=== PATIENT | male | born 1955 | race Caucasian/White ===

== ENCOUNTER 2016-12-05 16:39 | Outpatient (CLI) | payer OTHER | END 2016-12-05 16:40 | disposition critical access hospital (66) | LOC: EMS 16:39 | PROVIDERS: ATTEND Surgery | DX: R41.82 Altered mental status, unspecified (principal); R51 Headache | CPT/HCPCS: A0425; A0427 ==

== ENCOUNTER 2016-12-05 17:01 | Observation (INO) | payer OTHER ==
--- NOTE | 2016-12-05 17:13 | ED Physician Documentation ---
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 He was then working at desk with his upstairs. He went up to her and said that he did not feel right, was not sure what he was working on. She asked about recent events of the day, and he could not recall any events of the day, nor from the past few days, and even some events from couple weeks ago (did not remember that his brother had couple weeks ago). He had some headache. No focal weaknesses noted. He was able to talk coherently. No noted ataxia.), Today Timing - duration: Hours (2 1/2 - 3 hours.) Timing - details: Abrupt onset, Still present Severity of deficit: Moderate Weakness: No: Face, Arm, Hand, Leg, Foot, Right, Left, Other Numbness: No: Face, Arm, Hand, Leg, Foot, Right, Left, Other Associated symptoms: Headache. No: Nausea / vomiting, Seizure Contributing factors: negative: Anticoagulated, Vascular dz, Atrial fibrillation Baseline status: positive: A&OX3, ambulatory, indep Similar symptoms before: Has not had sx before Recently seen: Not recently seen Review of Systems Constitutional: denies: Fever, Chills Nose: denies: Rhinorrhea / runny nose, Congestion Throat: denies: Sore throat Cardiac: denies: Chest pain / pressure Respiratory: denies: Dyspnea, Cough GI: denies: Abdominal Pain, Nausea, Vomiting, Diarrhea Skin: denies: Rash, Lesions Neurologic: reports: Headache. denies: Focal weakness, Numbness, Syncope, Head injury Endocrine: denies: Weight loss Immunocompromised: denies: Immunocompromised PD PAST MEDICAL HISTORY - Past Medical History Cardiovascular: Hypertension, Coronary artery disease (with stent placed about 2001 without problems since. ) Respiratory: None Neuro: None Endocrine/Autoimmune: None - Present Medications Home Medications: Ambulatory Orders Medication Instructions Recorded Confirmed Atorvastatin [Lipitor] 10 mg PO DAILY 12/05/16 12/05/16 Atorvastatin [Lipitor] 10 mg PO DAILY 12/05/16 12/05/16 Isosorbide Mononitrate 10 mg PO DAILY 12/05/16 12/05/16 Metoprolol Tartrate 25 mg PO DAILY 12/05/16 12/05/16 No Known Home Medications [No 12/05/16 12/05/16 Known Home Medications] - Allergies Allergies/Adverse Reactions: Allergies Allergy/AdvReac Type Severity Reaction Status Date / Time No Known Drug Allergies Allergy Verified 12/05/16 17:10 - Living Situation Living Situation: reports: With spouse/s.o. Living Arrangement: reports: At home - Social History Does the pt smoke?: No Does the pt drink ETOH?: No Does the pt have substance abuse?: No - Family History Family history: reports: Non contributory PD ED PE NORMAL - Vitals Vital signs reviewed: Yes - General General: Alert and oriented X 3, No acute distress, Well developed/nourished, Other (unable to remember events of the day or recent few days. Does not remember events from even coming here on ambulance. No focal deficits one xam. Able to talk coherently. jail memory is good. 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, No motor deficit, No sensory deficit, Normal speech, Other (no short term memory) NIHSS - Level of Consciousness Level of consciousness: (0) Alert, Keenly responsive LOC Questions: (0) Answers both Q's correct LOC Commands: (0) Performs both correctly - Gaze Best Gaze: (0) Normal - Visual Visual: (0) No loss - Facial Palsy Facial Palsy: (0) Normal, symmetrical movement - Motor Arms (both separate) Motor Arm (right): (0) No drift Motor Arm (left): (0) No drift - Motor Legs (both separate) Motor Leg (right): (0) No drift Motor Leg (left): (0) No drift - Limb Ataxia Limb Ataxia: (0) Absent - Sensory Sensory: (0) Normal - Best Language Best Language: (0) No aphasia - Dysarthria Dysarthria: (0) Normal - Extinction and Inattention (formally neg Extinction and inattention: (0) No abnormality - Total Score/Results Total Score/Result: 0 Results - Vitals Vitals: Vital Signs - 24 hr 12/05/16 12/05/16 12/05/16 17:02 19:00 20:38 Heart Rate 58 L 64 60 Respiratory 16 12 16 Rate Blood Pressure 190/99 H 178/95 H 146/95 H O2 Saturation 100 97 98 Oxygen O2 Source Room air - Labs Labs: Laboratory Tests 12/05/16 12/05/16 12/05/16 17:14 18:21 18:21 WBC 11.6 H RBC 5.75 Hgb 16.2 Hct 48.1 MCV 83.6 MCH 28.2 MCHC 33.7 RDW 13.8 Plt Count 238 MPV 7.2 L Neut # 9.4 H Lymph # 1.6 Blackford # 0.5 Eos # 0.0 Baso # 0.1 Absolute Nucleated RBC 0.00 Nucleated RBC % 0.0 Sodium 136 Potassium 3.5 Chloride 98 L Carbon Dioxide 27 Anion Gap 11.0 BUN 12 Creatinine 1.0 Estimated GFR (MDRD) 76 L Glucose 107 H POC Whole Bld Glucose 113 H Calcium 9.3 Magnesium 2.2 Total Bilirubin 0.9 AST 38 ALT 34 Alkaline Phosphatase 75 Total Protein 8.1 Albumin 4.6 Globulin 3.5 Albumin/Globulin Ratio 1.3 Lipase 27 - Rads (name of study) head CT Radiology: Prelim report reviewed, Discussed with rads (normal study) PD MEDICAL DECISION MAKING - ED course Complexity details: reviewed results, considered differential, d/w patient Departure - Departure Disposition: ED Place in Observation Clinical Impression: Memory problem, TGA (transient global amnesia) Condition: Stable Record reviewed to determine appropriate education?: Yes
--- NOTE | 2016-12-05 17:38 | CT Preliminary Report ---
Exam: CT Head W/O IMPRESSION: Negative nonenhanced head CT. [facility] The call report notification system was initiated by Dr. Leon Morris at 17:34 hrs on 7. The above findings were discussed with Will by Dr. Leon Morris at 17:37 hrs on 12/05/16. SITE ID: [id number]
--- NOTE | 2016-12-05 17:41 | CT Report ---
EXAM: CT HEAD EXAM DATE: 12/05/2016 05:28 PM. CLINICAL HISTORY: Headache and repetitive questioning. COMPARISON: None. TECHNIQUE: Multiaxial CT images were obtained from the foramen magnum to the vertex. IV contrast: Non e. Reformats: Coronal. In accordance with CT protocol optimization, one or more of the following dose reduction techniques w ere utilized for this exam: automated exposure control, adjustment of mA and/or KV based on patient s ize, or use of iterative reconstructive technique. FINDINGS: Parenchyma: No intraparenchymal hemorrhage. No evidence of mass, midline shift, or CT findings of inf arction. Sheehan-white differentiation is distinct. Extraaxial Spaces: Normal for age. No subdural or epidural collections identified. Ventricles: Normal in size and position. Sinuses: Imaged paranasal sinuses, orbits, and mastoids show no significant abnormality. Bones: No evidence of fracture or calvarial defect. Other: None. IMPRESSION: Negative nonenhanced head CT. [facility] The call report notification system was initiated by Dr. Leon Morris at 17:34 hrs on 7. The above findings were discussed with Will by Dr. Leon Morris at 17:37 hrs on 12/05/16. Referring Provider Line: [phone] SITE ID: [id number]
[2016-12-05] MEDS ORDERED: SODIUM CHLORIDE 0.9% 1,000 ML IV ONE (18:09)
[2016-12-05] MEDS ORDERED: ASPIRIN CHEW 81 MG TABLET PO STA (18:10)
[2016-12-05] MEDS ORDERED: ASPIRIN CHEW 81 MG TABLET ONE (18:21)
[2016-12-05 18:31] LABS: BASOPHILS # (AUTO) 0.1 10^3/uL (0.0-0.1); BASOPHILS % (AUTO) 0.4 %; EOSINOPHILS % (AUTO) 0.3 %; HCT - HEMATOCRIT 48.1 % (42.0-52.0); HGB - HEMOGLOBIN 16.2 g/dL (14.0-18.0); LYMPHOCYTES # (AUTO) 1.6 10^3/uL (1.5-3.5); LYMPHOCYTES % (AUTO) 13.5 %; MEAN CORPUSCULAR HEMOGLOBIN 28.2 pg (27.0-31.0); MEAN CORPUSCULAR HGB CONC 33.7 g/dL (32.0-36.0); MEAN CORPUSCULAR VOLUME 83.6 fL (80.0-94.0); MEAN PLATELET VOLUME 7.2 fL (7.4-11.4); MONOCYTES # (AUTO) 0.5 10^3/uL (0.0-1.0); MONOCYTES % (AUTO) 4.3 %; NEUTROPHILS # (AUTO) 9.4 10^3/uL (1.5-6.6); NEUTROPHILS % (AUTO) 81.5 %; RED BLOOD COUNT 5.75 10^6/uL (4.70-6.10); RED CELL DISTRIBUTION WIDTH 13.8 % (12.0-15.0); UNCORRECTED WHITE BLOOD COUNT 11.6 x10^3/uL; WHITE BLOOD COUNT 11.6 x10^3/uL (4.8-10.8)
[2016-12-05 18:41] LABS: ALBUMIN/GLOBULIN RATIO 1.3 (1.0-2.2); BILIRUBIN,TOTAL 0.9 mg/dL (0.2-1.0); CALCIUM 9.3 mg/dL (8.5-10.3); MAGNESIUM 2.2 mg/dL (1.7-2.8); POTASSIUM 3.5 mmol/L (3.5-5.0); TOTAL PROTEIN 8.1 g/dL (6.7-8.2)
[2016-12-05] MEDS ORDERED: HYDROcod/ACETAM 10 MG/325 MG TABLET PO PRN (22:33)
[2016-12-05] MEDS ORDERED: ZOLPIDEM 5 MG TABLET PO PRN (22:33)
[2016-12-05] MEDS ORDERED: PROCHLORPERAZINE 10 MG/2 ML VIAL IVP PRN (22:33)
[2016-12-05] MEDS ORDERED: ACETAMINOPHEN 325 MG TABLET PO PRN (22:33)
[2016-12-05] MEDS ORDERED: HYDROcod/ACETAM 5/325 MG TABLET PO PRN (22:33)
[2016-12-05] MEDS ORDERED: ONDANSETRON 4 MG/2 ML VIAL IVP PRN (22:33)
[2016-12-05] MEDS ORDERED: SODIUM CHLORIDE FLUSH 0.9% 10 ML SYRINGE IVP PRN (22:33)
[2016-12-05] MEDS ORDERED: IOPAMIDOL-300 100 ML VIAL ONE (23:13)
[2016-12-05] MEDS ORDERED: IOPAMIDOL-300 100 ML VIAL IVP ONE (23:52)
--- NOTE | 2016-12-06 01:03 | CT Preliminary Report ---
Exam: CT Head Angio IMPRESSION: 1. No acute intracranial abnormality. Specifically, no evidence of acute infarct, hemorrhage, or mass lesion. 2. No abnormal brain parenchymal enhancement. 3. Normal CTA of the head and neck. No significant vascular stenosis, dissection, or aneurysm. [facility] SITE ID: [id number]
[2016-12-06] MEDS ORDERED: ATORVASTATIN 10 MG TABLET PO SCH ×2 (01:05→09:00)
[2016-12-06] MEDS ORDERED: METOPROLOL TARTRATE 25 MG TABLET PO SCH ×2 (01:10→09:00)
--- NOTE | 2016-12-06 01:10 | CT Report ---
EXAM: CT ANGIOGRAM HEAD HEAD CT WITH AND WITHOUT CONTRAST EXAM DATE: 12/06/2016 12:00 AM. CLINICAL HISTORY: Headache and memory loss. COMPARISON: Noncontrast brain CT from earlier today. TECHNIQUE: 1. Noncontrast Head: Using a multidetector scanner, axial images were acquired from the foramen magnu m to the skull vertex prior to contrast administration. 2. CTA Head: Using a multidetector scanner, high-resolution axial images were acquired from the skull base through vertex following rapid infusion of intravenous contrast. Multiplanar MIP reformats were reconstructed. 3. Post-contrast head CT: 5 mm contiguous axial sections were obtained from the foramen magnum to italia mauro was following CT angiogram. IV Contrast: 80 cc [id number] protocol optimization, one or more of the following dose reduction techniques w ere utilized for this exam: automated exposure control, adjustment of mA and/or KV based on patient s ize, or use of iterative reconstructive technique. FINDINGS: NON-CONTRAST HEAD: No acute interval change has occurred since the brain CT from earlier today. CT ANGIOGRAM HEAD: RIGHT: Internal Carotid artery: No evidence of dissection. No evidence of aneurysm along the intracranial IC A. Vertebral Artery: Patent without significant stenosis. No evidence of dissection. Anterior Cerebral Artery: Patent without significant stenosis, aneurysm, or vascular malformation. Middle Cerebral Artery: Patent without significant stenosis, aneurysm, or vascular malformation. Posterior Cerebral Artery: Patent without significant stenosis, aneurysm, or vascular malformation. Posterior Communicating Artery: Patent. No aneurysm. LEFT: Internal Carotid artery: No evidence of dissection. No evidence of aneurysm along the intracranial IC A. Vertebral Artery: Patent without significant stenosis. No evidence of dissection. The left vertebral artery is hypoplastic and essentially ends in PICA with minimal contribution to the basilar artery, a normal variant. Anterior Cerebral Artery: Patent without significant stenosis, aneurysm, or vascular malformation. Middle Cerebral Artery: Patent without significant stenosis, aneurysm, or vascular malformation. Posterior Cerebral Artery: There is origin of the left posterior cerebral artery with an absent P1 segment. Posterior Communicating Artery: Patent. No aneurysm. CENTRAL: Anterior Communicating Artery: Patent. No aneurysm. Basilar Artery: Patent without significant stenosis. No aneurysm. DURAL VENOUS SINUSES AND MAJOR CENTRAL VEINS: Patent. POST-CONTRAST HEAD: No abnormal enhancement. IMPRESSION: 1. No acute intracranial abnormality. Specifically, no evidence of acute infarct, hemorrhage, or mass lesion. 2. No abnormal brain parenchymal enhancement. 3. Normal CTA of the head and neck. No significant vascular stenosis, dissection, or aneurysm. [facility] Referring Provider Line: [phone] SITE ID: [id number]
[2016-12-06] MEDS: ISOSORBIDE MONONITRATE 10 MG TABLET PO SCH ×2 (01:22→07:20)
[2016-12-06] MEDS: FEXOFENADINE 60 MG TABLET PO SCH ×2 (01:27→07:19)
--- NOTE | 2016-12-06 01:31 | CT Preliminary Report ---
Exam: CT Neck Angio IMPRESSION: No hemodynamically significant stenosis in the extracranial arteries. [facility] SITE ID: [id number]
[2016-12-06] MEDS: TRIAMCINOLONE 55 MCG NASAL SPRAY NAS SCH ×2 (01:33→11:06)
--- NOTE | 2016-12-06 01:37 | CT Report ---
EXAM: CT ANGIOGRAM NECK EXAM DATE: 12/06/2016 12:00 AM. CLINICAL HISTORY: Headache and memory loss. COMPARISON: None. TECHNIQUE: Routine axial helical imaging was performed from the skull base through the aortic arch. I V Contrast: Yes. Reconstructions: Routine multiplanar 3D MIP reconstructions. Evaluation of arterial stenosis is based on a NASCET method of measurement. In accordance with CT protocol optimization, one or more of the following dose reduction techniques w ere utilized for this exam: automated exposure control, adjustment of mA and/or KV based on patient s ize, or use of iterative reconstructive technique. FINDINGS: Right Carotid: The common carotid, internal carotid, and external carotid arteries are widely patent. No dissection, significant atherosclerotic plaque, or calcification identified. Left Carotid: The common carotid, internal carotid, and external carotid arteries are widely patent. No dissection, significant atherosclerotic plaque, or calcification identified. Vertebrals: The vertebrobasilar system shows no stenoses. The right vertebral artery is dominant. Other: The visualized upper lungs are clear. The airway is patent. [id number] degenerative gipson ges are present in the cervical spine. No acute abnormality is seen in the soft tissues of the neck. IMPRESSION: No hemodynamically significant stenosis in the extracranial arteries. [facility] Referring Provider Line: [phone] SITE ID: [id number]
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
[2016-12-06 05:51] LABS: BASOPHILS # (AUTO) 0.1 10^3/uL (0.0-0.1); BASOPHILS % (AUTO) 0.7 %; EOSINOPHILS # (AUTO) 0.1 10^3/uL (0.0-0.7); EOSINOPHILS % (AUTO) 1.7 %; HCT - HEMATOCRIT 46.1 % (42.0-52.0); HGB - HEMOGLOBIN 15.5 g/dL (14.0-18.0); LYMPHOCYTES # (AUTO) 2.4 10^3/uL (1.5-3.5); LYMPHOCYTES % (AUTO) 29.1 %; MEAN CORPUSCULAR HEMOGLOBIN 28.2 pg (27.0-31.0); MEAN CORPUSCULAR HGB CONC 33.6 g/dL (32.0-36.0); MEAN CORPUSCULAR VOLUME 83.9 fL (80.0-94.0); MEAN PLATELET VOLUME 7.8 fL (7.4-11.4); MONOCYTES # (AUTO) 0.5 10^3/uL (0.0-1.0); MONOCYTES % (AUTO) 5.9 %; NEUTROPHILS # (AUTO) 5.2 10^3/uL (1.5-6.6); NEUTROPHILS % (AUTO) 62.6 %; NUCLEATED RED BLOOD CELLS AUTO 0.1 /100WBC; RED BLOOD COUNT 5.49 10^6/uL (4.70-6.10); RED CELL DISTRIBUTION WIDTH 13.5 % (12.0-15.0); UNCORRECTED WHITE BLOOD COUNT 8.3 x10^3/uL; WHITE BLOOD COUNT 8.3 x10^3/uL (4.8-10.8)
[2016-12-06 05:53] LABS: INR 1.1 (0.8-1.2); PT - PROTHROMBIN TIME 12.6 secs (9.9-12.6)
[2016-12-06] MEDS ORDERED: SODIUM CHLORIDE FLUSH 0.9% 10 ML SYRINGE IVP SCH (06:00)
[2016-12-06 06:30] LABS: ALBUMIN/GLOBULIN RATIO 1.3 (1.0-2.2); BILIRUBIN,TOTAL 1.1 mg/dL (0.2-1.0); CALCIUM 8.9 mg/dL (8.5-10.3); CREATININE 0.9 mg/dL (0.6-1.2); POTASSIUM 3.6 mmol/L (3.5-5.0)
[2016-12-06] MEDS ORDERED: ASPIRIN 325 MG TABLET PO SCH (08:00)
[2016-12-06] MEDS ORDERED: ISOSORBIDE MONONITRATE 10 MG TABLET PO SCH (09:00)
[2016-12-06] MEDS ORDERED: POLYETHYLENE GLYCOL 3350 17 GM PACKET PO SCH (09:00)
[2016-12-06] MEDS ORDERED: FAMOTIDINE 20 MG TABLET PO SCH (09:00)
--- NOTE | 2016-12-06 13:21 | MRI Preliminary Report ---
Exam: MRI Brain W/O IMPRESSION: 1. No evidence of acute or subacute infarct, intracranial hemorrhage, mass, midline shift, or hydroce phalus. 2. Scattered T2/FLAIR hyperintense periventricular, subcortical, deep white matter lesions within cer ebral hemispheres bilaterally. These lesions are nonspecific, and can be seen with the entire gamut o f white matter conditions, including migraine headaches and as sequela of chronic microangiopathy. Th is is likely of no clinical significance unless correlated with history of hypertension/diabetes. It is likely unrelated to present symptomatology. SITE ID: [id number]
--- NOTE | 2016-12-06 13:24 | MRI Report ---
EXAM: MRI BRAIN WITHOUT CONTRAST EXAM DATE: 12/06/2016 11:38 AM. CLINICAL HISTORY: Headache and memory loss. COMPARISON: CTA head and neck 12/05/2016 TECHNIQUE: Multiplanar, multisequence T1-weighted and fluid-sensitive MR sequences of the brain were performed. Sequences optimized for routine evaluation. Other: None. IV Contrast: None. FINDINGS: Brain Volume: Normal for age. Parenchyma/Dura: No acute parenchymal hemorrhage, mass, or midline shift. Scattered T2/FLAIR hyperint ense periventricular, subcortical, deep white matter lesions within cerebral hemispheres bilaterally. No areas of restricted diffusion to suggest acute infarct. No definite abnormal areas of susceptibil ity artifact. Pituitary: Normal. Ventricles/Cisterns: No definite abnormal extra-axial fluid collection/mass seen. Ventricles and sulc i appear age appropriate. Cisterns are patent. Fluid is seen within Meckel's caves. Visualized project intern al auditory canals appear clear. Sinuses: Visualized paranasal sinuses appear clear. Mastoid air cells and middle ear cavities appear clear. Orbits: Normal. Vasculature: Visualized major intracranial flow voids appear maintained. Bones: Normal. Other: None. IMPRESSION: 1. No evidence of acute or subacute infarct, intracranial hemorrhage, mass, midline shift, or hydroce phalus. 2. Scattered T2/FLAIR hyperintense periventricular, subcortical, deep white matter lesions within cer ebral hemispheres bilaterally. These lesions are nonspecific, and can be seen with the entire gamut o f white matter conditions, including migraine headaches and as sequela of chronic microangiopathy. Th is is likely of no clinical significance unless correlated with history of hypertension/diabetes. It is likely unrelated to present symptomatology. Referring Provider Line: [phone] SITE ID: [id number]
--- NOTE | 2016-12-06 13:51 | Discharge Plan ---
Discharge Plan Disposition: 01 Home, Self Care Condition: Stable Diet: Cardiac Activity Restrictions: Activity as Tolerated Shower Restrictions: No Weight Bearing: Full Weight Additional Instructions or Follow Up instructions: May see PCP in one week Follow-Up Care: [facility] - Cardiac, [facility] - Medical No Smoking: If you smoke, Please STOP! Call for help.
--- NOTE | 2016-12-06 14:00 | DISCHARGE SUMMARY ---
Discharge Summary Admit Date: 12/05/16 Discharge Date: 12/06/16 Discharging Provider: LANE Condition at Discharge: Stable Discharge Disposition: 01 Home, Self Care Discharge Facility Name: home - DIAGNOSES Admission Diagnoses: (1) TGA (transient global amnesia) (2) Hypertension (3) Hyperlipidemia (4) History of coronary artery disease Discharge Diagnoses with Status of Each Condition: (1) TGA (transient global amnesia) resolved (2) Hypertension stable (3) Hyperlipidemia stable (4) History of coronary artery disease stable - HPI History of Present Illness: please refer to Dr. Lawton's HPI on 12/06/16 as the following: Patient is a 61-year-old gentleman with a past medical history significant for coronary artery disease with no history of stents, hypertension, obstructive sleep apnea on CPAP, hyperlipidemia and exercise-induced asthma who presented to the emergency department with a chief complaint of memory loss and disorientation. According to the patient's she last saw him normal at 245 this afternoon. She states about half an hour later he came downstairs and told her that he was disoriented. She states that he continue to repeat himself and kept asking the same questions. She states she knew something was not right. The patient's states that earlier in the day the patient was riding a eulogy for his brother and was grieving and crying. She states that he could remember nothing from earlier in the day and could not answer questions but kept repeating his own questions. She says he kept saying that he was disoriented. She states that she called his woodworking shop hand office and spoke with the nurse because she was concerned it may be a reaction to 1 of his medications. The nurse told her to take him to the hospital. The patient's tried to get the patient into the car to go to the hospital however the patient would not follow her directions and she could not get him to go into the car. At that point she called 911 and an ambulance came and brought the patient to the hospital. Prior to this episode the patient had not been doing any unusual activity. He has not had any trauma to his head. He had only been under stress and grieving the loss of his brother. The patient denies any fevers, chills, changes in his appetite, recent unintentional weight loss, he does admit to a headache but denies any runny nose , sore throat, nasal congestion, difficulty swallowing. The patient denies any shortness of air, orthopnea, PND, chest pain, palpitations, abdominal pain, nausea, vomiting, diarrhea, constipation, urinary urgency, urinary frequency, dysuria, joint pains, muscle aches, joint swelling, back pain, neck stiffness, slurred speech, facial droop or any other focal neurologic deficits. On presentation to the emergency department the patient was afebrile but he was very hypertensive with blood pressure of 190/99 otherwise is vital signs were stable. The patient did not have any focal neurologic deficits but did have a lapse in his memory and initially continue to repeat himself. The patient did not have any difficulties with his speech. There was concern for possibility of stroke therefore patient underwent a CT of his head which was negative. The patient's EKG showed sinus rhythm without any ST elevations or ischemic changes. The patient's symptoms did seem to be improving while he was in the emergency department but did not completely resolve. The patient was placed in observation for further workup. - HOSPITAL COURSE Hospital Course: Pt was admitted for TGA. Pt denies focal neurological deficits. Pt is alert and oriented today morning, and request to be D/C today. Reviewed with pt for pt's image study, including MRI of brain, CT of brain, CTA of brain and neck, ECHO. These studies are unremarkable. - ALLERGIES Allergies/Adverse Reactions: Allergies Allergy/AdvReac Type Severity Reaction Status Date / Time No Known Drug Allergies Allergy Verified 12/05/16 17:10 - MEDICATIONS Home Medications: Ambulatory Orders Medication Instructions Recorded Confirmed Atorvastatin [Lipitor] 10 mg PO DAILY 12/05/16 12/05/16 Isosorbide Mononitrate 10 mg PO DAILY 12/05/16 12/05/16 Metoprolol Tartrate 25 mg PO DAILY 12/05/16 12/05/16 No Known Home Medications [No 12/05/16 12/05/16 Known Home Medications] - PHYSICAL EXAM AT DISCHARGE General Appearance: positive: No acute distress, Alert. negative: Lethargic Eyes Bilateral: positive: Normal inspection, PERRL, EOMI, No lid inflammation, Conjunctivae nml ENT: positive: ENT inspection nml, Pharynx nml, No signs of dehydration. negative: Purulent nasal drainage, Pharyngeal erythema, Oral lesions Neck: positive: Nml inspection, Thyroid nml, No JVD, Trachea midline. negative : Thyromegaly, Lymphadenopathy (R), Lymphadenopathy (L), Stiff neck, Swelling/ bruising, Tracheal deviation Respiratory: positive: Chest non-tender, No respiratory distress, Breath sounds nml. negative: Wheezes, Rales, Rhonchi Cardiovascular: positive: Regular rate & rhythm, No murmur, No gallop. negative : Irregularly irregular, Extrasystoles, Tachycardia, Bradycardia, JVD present, Systolic murmur, Diastolic murmur Peripheral Pulses: positive: 2+ Abdomen: positive: Non-tender, No organomegaly, Nml bowel sounds, No distention. negative: Tenderness, Guarding, Rebound Back: positive: Nml inspection. negative: CVA tenderness (R), CVA tenderness (L ) Skin: positive: Color nml, No rash, Warm, Dry. negative: Cyanosis, Diaphoresis , Pallor, Skin rash Extremities: positive: Non-tender, Full ROM, Nml appearance. negative: Pedal edema, Calf tenderness, Andres's sign/cords Neurologic/Psychiatric: positive: Oriented x3, Motor nml, Sensation nml, Mood/ affect nml. negative: Weakness, Sensory loss, Facial droop, Slurred/abnml speech, Depressed mood/affect - LABS Result Diagrams: 12/06/16 04:57 12/06/16 04:57 - DIAGNOSTIC IMAGING Diagnostic Imaging Results: Final report reviewed Diagnostic Imaging Results Comments: reviewed all image studies with pt, studies are unremarkable. - FOLLOW UP Follow Up: Pt is advised to see PCP in one week, and follow up his woodworking shop hand in his schedule. Pt is resume as his home medications.
[2016-12-06 14:28] VITALS: BP 127/90
== END 2016-12-06 14:50 | disposition home or self-care (01) ==
LOC: ED 17:01 → OBS 22:33
PROVIDERS: ADMIT Internal Medicine; ATTEND Nurse Practitioner Gerontology
DX: G45.4 Transient global amnesia (principal); I10 Essential (primary) hypertension; E78.5 Hyperlipidemia, unspecified; I25.10 Atherosclerotic heart disease of native coronary artery without angina pectoris; G47.33 Obstructive sleep apnea (adult) (pediatric); J45.909 Unspecified asthma, uncomplicated; Z63.4 Disappearance and death of family member; Z96.649 Presence of unspecified artificial hip joint; Z82.49 Family history of ischemic heart disease and other diseases of the circulatory system
CPT/HCPCS: 36415; 70450; 70496; 70498; 70551; 80053; 83690; 83735; 84484; 85025; 85610; 93005; 93306; 96360; 99218; 99284; A9270; Q9967

== ENCOUNTER 2018-04-16 13:04 | Emergency (ER) | payer OTHER ==
[2018-04-16 13:14] VITALS: BP 127/76
--- NOTE | 2018-04-16 13:50 | ED Physician Documentation ---
PD HPI HEENT - Stated complaint Stated Complaint: R EAR PX - Chief complaint Chief Complaint: Heent - History obtained from History obtained from: Patient, Family - History of Present Illness Timing - onset: How many weeks ago (1) Timing - duration: Weeks (1) Timing - details: Gradual onset Pain level max: 4 Pain level now: 3 Location: Right ear Improves: Nothing Worsens: Temperatures Associated symptoms: No: Fever, Congestion, Rhinorrhea, Unable to swallow Similar symptoms before: Diagnosis (Otitis externa) - Additional information Additional information: 62-year-old male who wears hearing aids, Complaining of right ear pain. Has had otitis externa before states this feels similar. Review of Systems Constitutional: denies: Fever Nose: denies: Rhinorrhea / runny nose, Congestion PD PAST MEDICAL HISTORY - Past Medical History Past Medical History: Yes Cardiovascular: Hypertension, High cholesterol, Coronary artery disease Respiratory: Asthma, Sleep apnea, CPAP use Endocrine/Autoimmune: None GI: Other Psych: None Musculoskeletal: Other - Past Surgical History Ortho: Hip replacement Derm: Skin grafts - Present Medications Home Medications: Ambulatory Orders Medication Instructions Recorded Confirmed Atorvastatin [Lipitor] 10 mg PO DAILY 12/05/16 12/05/16 Isosorbide Mononitrate 10 mg PO DAILY 12/05/16 12/05/16 Metoprolol Tartrate 25 mg PO DAILY 12/05/16 12/05/16 Neomycin/Polymyx/Hc Otic Drops 4 drops EACHEAR TID #1 bottle 04/16/18 [Cortisporin Ear Susp] - Allergies Allergies/Adverse Reactions: Allergies Allergy/AdvReac Type Severity Reaction Status Date / Time No Known Drug Allergies Allergy Verified 12/05/16 17:10 - Social History Does the pt smoke?: No Smoking Status: Never smoker Does the pt drink ETOH?: No Does the pt have substance abuse?: No - POLST Patient has POLST: No POLST Status: Full Code PD ED PE NORMAL - Vitals Vital signs reviewed: Yes - General General: Alert and oriented X 3, No acute distress - HEENT HEENT: Moist mucous membranes, Other (Left ear is normal. Right ear canal is erythematous, swollen with white discharge. Tympanic membrane is normal.) - Neck Neck: Supple, no meningeal sign - Cardiac Cardiac: RRR - Respiratory Respiratory: No respiratory distress, Clear bilaterally - Derm Derm: Warm and dry - Neuro Neuro: Alert and oriented X 3 Results - Vitals Vitals: Vital Signs - 24 hr 04/16/18 13:11 Temperature 37.0 C Heart Rate 64 Respiratory 16 Rate Blood Pressure 127/76 O2 Saturation 100 Oxygen O2 Source Room air PD MEDICAL DECISION MAKING - ED course Complexity details: considered differential, d/w patient ED course: 62-year-old male with a right acute otitis externa. Will place on Cortisporin otic and follow-up with his doctor. Patient counseled regarding signs and symptoms for which I believe and urgent re-evaluation would be necessary. Patient with good understanding of and agreement to plan and is comfortable going home at this time This document was made in part using voice recognition software. While efforts are made to proofread this document, sound alike and grammatical errors may occur. Departure - Departure Disposition: 01 Home, Self Care Clinical Impression: Otitis externa of right ear Qualifiers: Otitis externa type: unspecified type Chronicity: acute Qualified Code(s): H60.501 - Unspecified acute noninfective otitis externa, right ear Condition: Good Instructions: ED Otitis Externa Follow-Up: your,doctor in 1 week. [Other] Prescriptions: Neomycin/Polymyx/Hc Otic Drops [Cortisporin Ear Susp] 4 drops EACHEAR TID #1 bottle Comments: Use the antibiotic drops for 10 days. Return if you worsen. Follow-up with your doctor for further care. Discharge Date/Time: 04/16/18 14:27
== END 2018-04-16 14:27 | disposition home or self-care (01) ==
LOC: ED 13:04
DX: H60.501 Unspecified acute noninfective otitis externa, right ear (principal); I25.10 Atherosclerotic heart disease of native coronary artery without angina pectoris; I10 Essential (primary) hypertension; E78.00 Pure hypercholesterolemia, unspecified; Z96.649 Presence of unspecified artificial hip joint
CPT/HCPCS: 99283

== ENCOUNTER 2022-08-05 11:34 | Outpatient (CLI) | payer MEDICARE, BC ==
[2022-08-05 14:11] LABS: BASOPHILS # (AUTO) 0.1 10^3/uL (0.0-0.1); BASOPHILS % (AUTO) 0.9 %; EOSINOPHILS # (AUTO) 0.3 10^3/uL (0.0-0.7); EOSINOPHILS % (AUTO) 4.1 %; HCT - HEMATOCRIT 45.4 % (42.0-52.0); HGB - HEMOGLOBIN 15.1 g/dL (14.0-18.0); LYMPHOCYTES # (AUTO) 2.1 10^3/uL (1.5-3.5); MEAN CORPUSCULAR HEMOGLOBIN 28.5 pg (27.0-31.0); MEAN CORPUSCULAR HGB CONC 33.3 g/dL (32.0-36.0); MEAN CORPUSCULAR VOLUME 85.8 fL (80.0-94.0); MEAN PLATELET VOLUME 9.7 fL (7.4-11.4); MONOCYTES # (AUTO) 0.4 10^3/uL (0.0-1.0); NEUTROPHILS # (AUTO) 3.8 10^3/uL (1.5-6.6); NEUTROPHILS % (AUTO) 56.8 %; PLT - PLATELET COUNT 247 10^3/uL (130-450); RED BLOOD COUNT 5.29 10^6/uL (4.70-6.10); RED CELL DISTRIBUTION WIDTH 13.2 % (12.0-15.0); WHITE BLOOD COUNT 6.6 x10^3/uL (4.8-10.8)
[2022-08-05 15:14] LABS: ALBUMIN 4.1 g/dL (3.2-5.5); ALBUMIN/GLOBULIN RATIO 1.3 (1.0-2.2); ALKALINE PHOSPHATASE 58 IU/L (42-121); ALT ALANINE AMINOTRANSFERASE 23 IU/L (10-60); AST ASPARTATE AMINOTRANSFERASE 28 IU/L (10-42); BILIRUBIN,TOTAL 0.8 mg/dL (0.2-1.0); BUN - BLOOD UREA NITROGEN 14 mg/dL (6-20); CALCIUM 8.9 mg/dL (8.5-10.3); CARBON DIOXIDE - CO2 26 mmol/L (21-32); CHLORIDE 106 mmol/L (101-111); CHOL/HDL RATIO 4.5 (<5.0); CHOLESTEROL 289 mg/dL; CREATININE 0.9 mg/dL (0.6-1.2); GFR - MDRD 84 (>89); GLUCOSE 95 mg/dL (70-100); HDL CHOLESTEROL 64 mg/dL; LDL CHOLESTEROL,CALCULATED 195 mg/dL; POTASSIUM 3.9 mmol/L (3.5-5.0); SODIUM 139 mmol/L (135-145); TOTAL PROTEIN 7.3 g/dL (6.7-8.2); TRIGLYCERIDES 149 mg/dL; VLDL CHOLESTEROL 30 mg/dL
[2022-08-05 15:24] LABS: PSA TOTAL 3.382 ng/mL (0.000-2.000)
[2022-08-05 15:57] LABS: PSA FREE 0.875 ng/mL (0.16-2.81)
[2022-08-06 18:07] LABS: FREE TESTOSTERONE(DIRECT) 8.9 pg/mL (6.6-18.1)
== END 2022-08-05 11:35 | disposition home or self-care (01) ==
LOC: LAB.S 11:34
PROVIDERS: ATTEND Naturopath
DX: Z00.00 Encounter for general adult medical examination without abnormal findings (principal); R68.82 Decreased libido; R53.83 Other fatigue; I25.118 Atherosclerotic heart disease of native coronary artery with other forms of angina pectoris; E78.5 Hyperlipidemia, unspecified; I10 Essential (primary) hypertension
CPT/HCPCS: 36415; 80053; 80061; 83721; 84153; 84154; 84402; 84403; 85025

== ENCOUNTER 2022-09-19 08:16 | Outpatient (CLI) | payer MEDICARE, BC | END 2022-09-19 08:17 | disposition home or self-care (01) | LOC: LAB.S 08:16 | PROVIDERS: ATTEND Naturopath | DX: R68.82 Decreased libido (principal); R53.83 Other fatigue | CPT/HCPCS: 36415; 84402; 84403 ==

== ENCOUNTER 2023-02-06 08:20 | Outpatient (CLI) | payer MEDICARE, BC ==
[2023-02-07 17:08] LABS: FREE TESTOSTERONE(DIRECT) 17.6 pg/mL (6.6-18.1)
== END 2023-02-06 08:21 | disposition home or self-care (01) ==
LOC: LAB.S 08:20
PROVIDERS: ATTEND Naturopath
DX: Z00.00 Encounter for general adult medical examination without abnormal findings (principal); R68.82 Decreased libido
CPT/HCPCS: 36415; 84402; 84403

== ENCOUNTER 2023-03-06 09:32 | Outpatient (CLI) | payer MEDICARE, BC ==
[2023-03-06 14:49] LABS: BASOPHILS # (AUTO) 0.1 10^3/uL (0.0-0.1); BASOPHILS % (AUTO) 0.8 %; EOSINOPHILS # (AUTO) 0.3 10^3/uL (0.0-0.7); EOSINOPHILS % (AUTO) 3.9 %; HCT - HEMATOCRIT 49.3 % (42.0-52.0); LYMPHOCYTES # (AUTO) 1.8 10^3/uL (1.5-3.5); LYMPHOCYTES % (AUTO) 27.6 %; MEAN CORPUSCULAR HEMOGLOBIN 27.5 pg (27.0-31.0); MEAN CORPUSCULAR HGB CONC 32.5 g/dL (32.0-36.0); MEAN CORPUSCULAR VOLUME 84.9 fL (80.0-94.0); MEAN PLATELET VOLUME 9.9 fL (7.4-11.4); MONOCYTES # (AUTO) 0.5 10^3/uL (0.0-1.0); MONOCYTES % (AUTO) 7.3 %; NEUTROPHILS # (AUTO) 3.9 10^3/uL (1.5-6.6); NEUTROPHILS % (AUTO) 60.2 %; PLT - PLATELET COUNT 260 10^3/uL (130-450); RED BLOOD COUNT 5.81 10^6/uL (4.70-6.10); RED CELL DISTRIBUTION WIDTH 14.2 % (12.0-15.0); WHITE BLOOD COUNT 6.4 x10^3/uL (4.8-10.8)
[2023-03-06 15:43] LABS: ALBUMIN 4.1 g/dL (3.2-5.5); ALBUMIN/GLOBULIN RATIO 1.3 (1.0-2.2); ALKALINE PHOSPHATASE 69 IU/L (42-121); ALT ALANINE AMINOTRANSFERASE 21 IU/L (10-60); AST ASPARTATE AMINOTRANSFERASE 25 IU/L (10-42); BILIRUBIN,TOTAL 0.5 mg/dL (0.2-1.0); BUN - BLOOD UREA NITROGEN 12 mg/dL (6-20); CALCIUM 8.9 mg/dL (8.5-10.3); CARBON DIOXIDE - CO2 29 mmol/L (21-32); CHLORIDE 102 mmol/L (101-111); CHOL/HDL RATIO 4.4 (<5.0); CHOLESTEROL 268 mg/dL; CREATININE 0.9 mg/dL (0.6-1.3); GFR - MDRD 84 (>89); GLUCOSE 95 mg/dL (74-104); HDL CHOLESTEROL 61 mg/dL; LDL CHOLESTEROL,CALCULATED 164 mg/dL; LDL/HDL RATIO 2.7 (<3.6); POTASSIUM 3.9 mmol/L (3.5-4.5); SODIUM 136 mmol/L (135-145); TOTAL PROTEIN 7.2 g/dL (6.4-8.9); TRIGLYCERIDES 217 mg/dL (48-352); VLDL CHOLESTEROL 43 mg/dL
[2023-03-06 16:21] LABS: THYROID STIMULATING HORMONE 1.27 uIU/mL (0.34-5.60)
[2023-03-06 21:19] LABS: ESTIMATED AVERAGE GLUCOSE 120 mg/dL (70-100); HEMOGLOBIN A1c% 5.8 % (4.27-6.07)
== END 2023-03-06 09:33 | disposition home or self-care (01) ==
LOC: LAB.S 09:32
PROVIDERS: ATTEND Physician Assistant Medical
DX: Z13.9 Encounter for screening, unspecified (principal); I25.10 Atherosclerotic heart disease of native coronary artery without angina pectoris
CPT/HCPCS: 36415; 80053; 80061; 83036; 83721; 84443; 85025